=== PATIENT | female | born 1990 | race Caucasian/White ===

== ENCOUNTER 2020-08-03 16:23 | Emergency (ER) | payer BC ==
[2020-08-03] MEDS ORDERED: Sodium Chloride 0.9% 1,000 ML IV ONE (16:31)
[2020-08-03] MEDS ORDERED: LORazepam 2 MG/ML SDV IVPUSH ONE (16:31)
[2020-08-03] MEDS ORDERED: Ondansetron 4 MG/2 ML SDV IVPUSH ONE (16:31)
--- NOTE | 2020-08-03 16:42 | EDM.PDOC ---
ED HPI GENERAL MEDICAL PROBLEM - General Chief Complaint: General Stated Complaint: VOMITING/ETOH Time Seen by Provider: 08/03/20 16:23 Source of Information: Reports: Patient History Limitations: Reports: No Limitations - History of Present Illness INITIAL COMMENTS - FREE TEXT/NARRATIVE: 30 YO WF PRESENTS TO ER WITH INTRACTABLE VOMITING WHICH BEGAN EARLIER TODAY. PT REPORTS SHE WAS DRINKING HEAVILY LAST NIGHT AND HASN'T EATEN ANYTHING ALL DAY TODAY. PT REPORTS ASSOCIATED ABDOMINAL CRAMPING AND FEELING GENERALLY HUNGOVER AND DEHYDRATED. PT DENIES ANY HISTORY OF HEAVY DRINKING OR DRUG USE IN THE PAST, BUT ADMITS TO SMOKING MARIJUANA AND INGESTION OF SOME COCAINE LAST NIGHT. PT DENIES ANY CHEST PAIN, SHORTNESS OF BREATH OR DIAPHORESIS. PT IS ALERT AND ORIENTED X 4, GCS-15. PT DENIES RECENT ILLNESS, NO COUGH/CONGESTION, NO FEVER/CHILLS, NO KNOWN COVID CONTACTS. Onset: Today Onset Date: 08/03/20 Onset Time: 04:00 Location: Reports: Generalized Quality: Reports: Ache Severity: Mild Improves with: Reports: None Worsens with: Reports: Eating Associated Symptoms: Reports: Nausea/Vomiting, Weakness - Related Data Allergies Allergy/AdvReac Type Severity Reaction Status Date / Time No Known Drug Allergies Allergy Cannot Verified 08/03/20 17:07 Remember Home Meds: Home Meds . [No Known Home Meds] 08/03/20 [History] ED ROS GENERAL - Review of Systems Review Of Systems: See Below Constitutional: Reports: Malaise, Weakness, Decreased Appetite HEENT: Reports: No Symptoms Respiratory: Reports: No Symptoms Cardiovascular: Reports: No Symptoms Endocrine: Reports: No Symptoms GI/Abdominal: Reports: Nausea, Vomiting : Reports: No Symptoms Musculoskeletal: Reports: No Symptoms Skin: Reports: No Symptoms Neurological: Reports: No Symptoms Psychiatric: Reports: No Symptoms Hematologic/Lymphatic: Reports: No Symptoms Immunologic: Reports: No Symptoms ED EXAM, GENERAL - Physical Exam Exam: See Below Exam Limited By: No Limitations General Appearance: Alert, WD/WN, No Apparent Distress Head: Atraumatic, Normocephalic Neck: Normal Inspection, Supple, Non-Tender, Full Range of Motion Respiratory/Chest: No Respiratory Distress, Lungs Clear, Normal Breath Sounds, No Accessory Muscle Use, Chest Non-Tender Cardiovascular: Normal Peripheral Pulses, Regular Rate, Rhythm, No Edema, No Gallop, No JVD, No Murmur, No Rub GI/Abdominal: Normal Bowel Sounds, Soft, Non-Tender, No Organomegaly, No Distention, No Abnormal Bruit, No Mass Back Exam: Normal Inspection, Full Range of Motion, NT Extremities: Normal Inspection, Normal Range of Motion, Non-Tender, Normal Capillary Refill, No Pedal Edema Neurological: Alert, Oriented, CN II-XII Intact, Normal Cognition, Normal Gait, Normal Reflexes, No Motor/Sensory Deficits Psychiatric: Normal Affect, Normal Mood Skin Exam: Warm, Dry, Intact, Normal Color, No Rash Lymphatic: No Adenopathy Course - Vital Signs Last Recorded V/S: Last Vital Signs Temp 97.5 F 08/03/20 16:25 Pulse 97 08/03/20 16:30 Resp 18 08/03/20 16:30 BP 124/76 08/03/20 16:30 Pulse Ox 98 08/03/20 16:30 - Orders/Labs/Meds Orders: Active Orders 24 hr Category Date Time Status Abdomen Series w Chest 1V [CR] Stat Exams 08/03/20 16:32 Ordered Sodium Chloride 0.9% @ 999 MLS/HR (1000ml) Med 08/03/20 16:31 Ordered Sodium Chloride 0.9% [Normal Saline] 1,000 ml IV .BOLUS Medication Orders Sodium Chloride (Normal Saline) 1,000 mls @ 999 mls/hr IV .BOLUS ONE Stop: 08/03/20 17:31 Labs: Laboratory Tests 08/03/20 08/03/20 08/03/20 Range/Units 16:41 16:41 16:50 WBC 14.11 H (5.00-10.00) 10^3/uL RBC 5.07 (3.80-5.50) 10^6/uL Hgb 14.7 (12.0-16.0) g/dL Hct 42.6 (37.0-47.0) % MCV 84.0 (82.0-92.0) fL MCH 29.0 (27.0-31.0) pg MCHC 34.5 (32.0-36.0) g/dL RDW 12.8 (11.5-14.5) % Plt Count 287 (150-400) 10^3/uL MPV 9.6 (7.4-10.4) fL Immature Gran % (Auto) 0.3 (0.0-5.0) % Neut % (Auto) 85.4 H (50.0-70.0) % Lymph % (Auto) 10.6 L (20.0-40.0) % [place] % (Auto) 3.3 (2.0-8.0) % Eos % (Auto) 0.1 L (1.0-3.0) % Baso % (Auto) 0.3 (0.0-1.0) % Neut # (Auto) 12.06 H (2.50-7.00) 10^3/uL Lymph # (Auto) 1.49 (1.00-4.00) 10^3/uL [place] # (Auto) 0.47 (0.10-0.80) 10^3/uL Eos # (Auto) 0.01 L (0.10-0.30) 10^3/uL Baso # (Auto) 0.04 (0.00-0.10) 10^3/uL Immature Gran # (Auto) 0.04 (0.00-0.50) 10^3/uL Sodium 140 (136-145) mmol/L Potassium 3.7 (3.5-5.1) mmol/L Chloride 103 (98-107) mmol/L Carbon Dioxide 23.9 (21.0-32.0) mmol/L Anion Gap 16.8 H (5-15) mmol/L BUN 10 (7-18) mg/dL Creatinine 0.60 (0.51-1.17) mg/dL Est Cr Clr Drug Dosing 134.54 mL/min Estimated GFR (MDRD) > 60 mL/min Glucose 102 (70-140) mg/dL Calcium 8.8 (8.7-10.3) mg/dL Total Bilirubin 0.5 (0.2-1.0) mg/dL AST 10 L (15-37) U/L ALT 24 (14-63) U/L Alkaline Phosphatase 116 (46-116) U/L Total Protein 7.6 (6.4-8.2) g/dL Albumin 3.78 (3.40-5.00) g/dL Lipase 76 (73-393) U/L Specimen Type Urinvoid Urine Color Yellow (YELLOW) Urine Appearance Slightly cloudy H (CLEAR) Urine pH >= 9.0 (5.0-9.0) Ur Specific [place] 1.015 (1.005-1.030) Urine Protein 100 H (NEGATIVE) mg/dL Urine Glucose (UA) Negative (NEGATIVE) mg/dL Urine Ketones Negative (NEGATIVE) mg/dL Urine Occult Blood Trace-intact H (NEGATIVE) Urine Nitrite Negative (NEGATIVE) Urine Bilirubin Negative (NEGATIVE) Urine Urobilinogen 0.2 (0.2-1.0) E.U./dL Ur Leukocyte Esterase Negative (NEGATIVE) Urine RBC 5-10 H (0-5) /HPF Urine WBC 0-5 (0-5) /HPF Ur Epithelial Cells Moderate H /LPF Urine Bacteria Few (NONE TO FEW) /HPF Urine HCG, Qual (NEGATIVE) Ethyl Alcohol < 3 H (NOT DETECTED) mg/dL 08/03/20 Range/Units 16:50 WBC (5.00-10.00) 10^3/uL RBC (3.80-5.50) 10^6/uL Hgb (12.0-16.0) g/dL Hct (37.0-47.0) % MCV (82.0-92.0) fL MCH (27.0-31.0) pg MCHC (32.0-36.0) g/dL RDW (11.5-14.5) % Plt Count (150-400) 10^3/uL MPV (7.4-10.4) fL Immature Gran % (Auto) (0.0-5.0) % Neut % (Auto) (50.0-70.0) % Lymph % (Auto) (20.0-40.0) % [place] % (Auto) (2.0-8.0) % Eos % (Auto) (1.0-3.0) % Baso % (Auto) (0.0-1.0) % Neut # (Auto) (2.50-7.00) 10^3/uL Lymph # (Auto) (1.00-4.00) 10^3/uL [place] # (Auto) (0.10-0.80) 10^3/uL Eos # (Auto) (0.10-0.30) 10^3/uL Baso # (Auto) (0.00-0.10) 10^3/uL Immature Gran # (Auto) (0.00-0.50) 10^3/uL Sodium (136-145) mmol/L Potassium (3.5-5.1) mmol/L Chloride (98-107) mmol/L Carbon Dioxide (21.0-32.0) mmol/L Anion Gap (5-15) mmol/L BUN (7-18) mg/dL Creatinine (0.51-1.17) mg/dL Est Cr Clr Drug Dosing mL/min Estimated GFR (MDRD) mL/min Glucose (70-140) mg/dL Calcium (8.7-10.3) mg/dL Total Bilirubin (0.2-1.0) mg/dL AST (15-37) U/L ALT (14-63) U/L Alkaline Phosphatase (46-116) U/L Total Protein (6.4-8.2) g/dL Albumin (3.40-5.00) g/dL Lipase (73-393) U/L Specimen Type Urine Color (YELLOW) Urine Appearance (CLEAR) Urine pH (5.0-9.0) Ur Specific [place] (1.005-1.030) Urine Protein (NEGATIVE) mg/dL Urine Glucose (UA) (NEGATIVE) mg/dL Urine Ketones (NEGATIVE) mg/dL Urine Occult Blood (NEGATIVE) Urine Nitrite (NEGATIVE) Urine Bilirubin (NEGATIVE) Urine Urobilinogen (0.2-1.0) E.U./dL Ur Leukocyte Esterase (NEGATIVE) Urine RBC (0-5) /HPF Urine WBC (0-5) /HPF Ur Epithelial Cells /LPF Urine Bacteria (NONE TO FEW) /HPF Urine HCG, Qual Negative (NEGATIVE) Ethyl Alcohol (NOT DETECTED) mg/dL Meds: Medications Generic Name Dose Route Start Last Admin Trade Name Freq PRN Reason Stop Dose Admin Sodium Chloride 1,000 mls @ 999 mls/hr 08/03/20 16:31 Normal Saline IV 08/03/20 17:31 .BOLUS ONE Discontinued Medications Generic Name Dose Route Start Last Admin Trade Name Freq PRN Reason Stop Dose Admin Lorazepam 1 mg 08/03/20 16:31 Ativan IVPUSH 08/03/20 16:32 ONETIME ONE Ondansetron HCl 4 mg 08/03/20 16:31 Zofran IVPUSH 08/03/20 16:32 ONETIME ONE - Radiology Interpretation Free Text/Narrative:: AAS- NAD - Re-Assessments/Exams Free Text/Narrative Re-Assessment/Exam: 08/03/20 17:25 PT AWAKE AND ALERT. NO ACTIVE VOMITING, ABDOMINAL CRAMPING RESOLVED. Departure - Departure Time of Disposition: 17:29 Disposition: Home, Self-Care 01 Condition: Good Clinical Impression: Alcohol use Vomiting Qualifiers: Vomiting Intractability: intractable Nausea presence: with nausea Gastritis Qualifiers: Gastritis type: alcoholic Chronicity: acute Gastritis bleeding: without bleeding Qualified Code(s): K29.20 - Alcoholic gastritis without bleeding - Discharge Information Instructions: Nausea and Vomiting, Adult, Gastritis, Adult Referrals: PCP,Not In Area [Primary Care Provider] - Forms: ED Department Discharge Additional Instructions: 1. DISCHARGE HOME 2. ZOFRAN 4MG ODT TABLET EVERY 4-6 HOURS NEEDED FOR VOMITING 3. PEPCID 20MG TWICE/DAY FOR GASTRITIS 4. CLEAR LIQUID DIET AND PROGRESS TOLERATED 5. FOLLOW UP WITH PCP FOR FURTHER EVALUATION AND TREATMENT 6. RETURN TO ER FOR WORSENING SYMPTOMS Sepsis Event Note (ED) - Focused Exam Vital Signs: Vital Signs Temp Pulse Resp BP Pulse Ox 08/03/20 16:30 97 18 124/76 98 08/03/20 16:25 97.5 F 99 20 116/84 94 L - My Orders Last 24 Hours: My Active Orders 08/03/20 16:31 Sodium Chloride 0.9% @ 999 MLS/HR (1000ml) Sodium Chloride 0.9% [Normal Saline] 1,000 ml IV .BOLUS 08/03/20 16:32 Abdomen Series w Chest 1V [CR] Stat - Assessment/Plan Last 24 Hours: My Active Orders 08/03/20 16:31 Sodium Chloride 0.9% @ 999 MLS/HR (1000ml) Sodium Chloride 0.9% [Normal Saline] 1,000 ml IV .BOLUS 08/03/20 16:32 Abdomen Series w Chest 1V [CR] Stat Assessment:: 1. DEHYDRATION 2. NAUSEA/VOMITING- SECONDARY TO ETOH USE Plan: 1. DISCHARGE HOME 2. ZOFRAN 4MG ODT #6 TABLET EVERY 4-6 HOURS NEEDED FOR VOMITING (SENT HOME WITH PATIENT DUE TO PHARMACY CLOSED) 3. PEPCID 20MG TWICE/DAY FOR GASTRITIS 4. CLEAR LIQUID DIET AND PROGRESS TOLERATED 5. FOLLOW UP WITH PCP FOR FURTHER EVALUATION AND TREATMENT 6. RETURN TO ER FOR WORSENING SYMPTOMS
[2020-08-03 17:13] LABS: ANION GAP 16.8 mmol/L (5-15); CHLORIDE,CL 103 mmol/L (98-107); SODIUM,NA 140 mmol/L (136-145)
[2020-08-03] MEDS ORDERED: Ondansetron 4 MG Tab.DIS PO ONE (17:30)
[2020-08-03] MEDS ORDERED: Famotidine 20 MG/2 ML SDV IVPUSH ONE (17:35)
--- NOTE | 2020-08-03 17:38 | CR ---
[id number] RAD/RAD Abdomen 3V Exam: RAD Abdomen 3V Clinical Data: ABDOMINAL PAIN COMPARISON: NO PREVIOUS SIMILAR EXAM IS AVAILABLE FINDINGS: The lungs are clear There is no bowel obstruction There is no free air There is a minimal ileus There is no organomegaly or pathologic calcification IMPRESSION: MINIMAL ILEUS Rey Ventura MD 08/03/20 [id number] Thank you for allowing us to participate in the care of your patient.
== END 2020-08-03 17:55 | disposition home or self-care (01) ==
LOC: KA.ED 16:23
DX: K29.20 Alcoholic gastritis without bleeding (principal); R11.2 Nausea with vomiting, unspecified
CPT/HCPCS: 36415; 74022; 80053; 80307; 81001; 81025; 83690; 85025; 96374; 96375; 99283; 99285-25; A9270-GY; J2060; J2405; J3490; J7030